=== PATIENT | female | born 1990 | race Caucasian/White ===

== ENCOUNTER → 2016-12-29 | Outpatient (CLI) | payer BC ==
[~2016-12-29] MED LIST: BCPILLS PO; DESO1TAB7 PO
[2016-12-29 14:49] LABS: ALT/SGPT 28 U/L (12-78); AST/SGOT 17 U/L (15-37); BLOOD UREA NITROGEN 10 mg/dl (7-18); CALCIUM 8.8 mg/dl (8.5-10.1); CARBON DIOXIDE 27 mmol/L (21-32); CHLORIDE 108 mmol/L (98-107); CREATININE 0.86 mg/dl (0.60-1.20); GLUCOSE 83 mg/dl (70-99); POTASSIUM 4.2 mmol/L (3.5-5.1); SODIUM 140 mmol/L (136-145)
[2016-12-29 14:59] LABS: ALB/GLOB RATIO 1.1 (0.9-2); ALKALINE PHOSPHATASE 49 U/L (45-117)
[2016-12-29 15:07] LABS: ESTIMATED AVERAGE GLUCOSE 97 mg/dl; HA1C FLAG Normal (Normal)
== END | disposition home or self-care (01) ==
LOC: C.LAB1850 12:39
PROVIDERS: ATTEND Family Medicine
DX: E78.5 Hyperlipidemia, unspecified (principal); R53.83 Other fatigue; E66.9 Obesity, unspecified; E55.9 Vitamin D deficiency, unspecified

== ENCOUNTER → 2017-07-12 | Outpatient (CLI) | payer BC | END | disposition home or self-care (01) | LOC: C.PAPS 11:30 | PROVIDERS: ATTEND Obstetrics & Gynecology | DX: Z01.419 Encounter for gynecological examination (general) (routine) without abnormal findings (principal) ==

== ENCOUNTER → 2017-09-19 | Outpatient (CLI) | payer BC | END | disposition home or self-care (01) | LOC: C.PATHSPEC 17:23 | PROVIDERS: ATTEND Obstetrics & Gynecology | DX: N87.0 Mild cervical dysplasia (principal) ==

== ENCOUNTER 2023-08-25 07:44 | Inpatient (IN) ==
[2023-08-25] MEDS ORDERED: OXYTOCIN 30 UNITS/NSS 30 UNITS/500 ML BAG IV PRN (08:01)
[2023-08-25] MEDS ORDERED: LIDOCAINE 1% LOCAL 20 ML VIAL INFIL PRN (08:01)
--- NOTE | 2023-08-25 08:25 | History & Physical Report ---
Date of Service August 25, 2023 Assessment & Plan (1) Supervision of normal first : Plan: Admit to L&D. EFM/toco, labs. IV fluids. Walker bulb placed, filled to 35cc sterile water - tolerated well. Pitocin. Patient agrees with plan. Admission and Anticipated Discharge Date Admission Date: August 25, 2023 History of Present Illness Chief Complaint: IOL Primary Care Provider: Nikos Kohler MD 33yo @ 40 07/10, here for IOL. Obesity (BMI 40 and higher @ beginning of ) *Growth US @ 32wks *Weekly NSTs @ 34wks *BMI 40 or greater offer detailed/level II anatomy at [facility] *BMI 40 or above offer delivery by EDC--> induction scheduled for event (call at 11 to arrive at noon) *BMI 50 or greater scheduled detailed/level II anatomy at [facility] Factor V Leiden Heterozygote *Heme Consult (03/11/23) -Do not recommend VTE prophylaxis during and only needed PP if has csection -Recommend FOB have testing for factor V due to family hx of FOB sister having it - FOB is factor V heterozygous Hypothyroidism *managed by PCP Pt with Hip Dysplasia - patient sees chiropracter for this - not doing HVLA - has full mobility, just soreness/stiffness Allergies Allergy/AdvReac Type Severity Reaction Status Date / Time bee venom protein (honey bee) Allergy Severe EXTREME Verified 08/24/23 13:30 SWELLING orange Allergy Intermediate HIVES/RASPY Verified 08/24/23 13:30 - FROM ORANGE JUICE No Known Drug Allergies Allergy Verified 08/24/23 13:30 Honeydew Harinder Allergy Intermediate HIVES Uncoded 08/24/23 13:30 Home Medications Medication Instructions Recorded Confirmed Type vits no.126-ferrous fum tab PO 01/06/23 08/24/23 History 28 mg iron-folic acid 800 mcg tablet (Classic ) levothyroxine 50 mcg tablet See Rx Instructions PO DAILY #90 01/10/23 08/24/23 Rx tabs mupirocin 2 % topical ointment 1 applic topical BID #15 grams 05/17/23 08/24/23 Rx RSV vac, preF A and preF B(PF) 120 0.5 ml IM ONCE #1 ea 07/14/23 08/24/23 Rx mcg/0.5 mL IM solution (Abrysvo) levothyroxine 75 mcg tablet 75 mcg PO DAILY #30 tabs 07/27/23 08/24/23 Rx Patient History Medical History (Updated 01/14/23 @ 16:25 by Zelda García MD, FACOG) Abnormal finding on thyroid function test Acute bronchitis Leukocytosis Surgical History History of colposcopy History of dental surgery Family History Father Diabetes Factor 5 Leiden mutation, heterozygous Nephrolithiasis Aunt Breast cancer Grandfather (Paternal) Diabetes Grandfather (Maternal) Coronary heart disease Diabetes Colon cancer Myocardial infarction Grandmother (Maternal) Hypertension Grandmother (Paternal) Hypertension Denies family history of Ovarian cancer Prostate cancer Social History Smoking Status: Never smoker Second Hand Exposure: No; Do You Dip or Chew Tobacco: No; Hx Alcohol Use: Yes Hx Substance Use: No Preferred Language: Citizen Of [place] Communication Ability: Effective Visual Impairment: No Limitations Hearing Ability: Normal Cd Mixer Required: No Beliefs That Will Affect Care: None marital status: marital status details: Abdoul España (34) [phone] Current Living Situation: Spouse Current Living Situation Comment: lives with and 1 dog current occupational status: employed current occupation: teacher Feels Safe at Home: Yes Childhood Exposure to Second-Hand Smoke: No Dental Care, Regularly: Yes Seatbelt Use: always Sunscreen Use: Yes Review of Systems All systems reviewed & are unremarkable except as noted in HPI & below Physical Exam Physical Exam: FHT Cat 1 [place] occasional SVE cl/50/-3 Constitutional: WD/WN, vitals as above Respiratory: normal respiratory effort, lungs clear to auscultation no respiratory distress Cardiovascular: Rate/Rhythm: regular rate and regular rhythm Gastrointestinal (Abdomen): Inspection/Auscultation: abdomen normal to inspection Percussion/Palpation: abdomen soft; abdomen nontender Gravid. No s/s chorio or abruption. Skin: no rashes, warm and dry Psychiatric: A+Ox3, euthymic affect Results & Data Vital Signs (Past 12 Hours) Vital Signs Pulse BP 08/25/23 07:59 93 H 148/78 H Code Status & VTE Plan VTE Prophylaxis Plan VTE Prophylaxis will be ordered: No Coding Level of Care Code None Diagnoses Supervision of normal first Z34.00
[2023-08-25] MEDS: LACTATED RINGER'S 1,000 ML IV PRN (08:30)
[2023-08-25 08:46] LABS: Hematocrit (blood only) 39.7 % (37.0-47.0); Hemoglobin 13.1 g/dl (12.0-16.0); Mean Corpuscular Hemoglobin 29.8 pg (25.0-34.0); Mean Corpuscular Volume 90.4 fL (80.0-100.0); Mean Platelet Volume 11.8 fL (9.4-12.4); Platelet Count 205 K/uL (130-400); RDW Coefficient of Variation 13.7 % (11.5-14.5); RDW Standard Deviation 45.1 fL (36.4-46.3); Red Blood Count 4.39 M/uL (4.20-5.40); White Blood Count 10.34 K/ul (4.8-10.8)
[2023-08-25 09:00] LABS: Albumin Globulin Ratio 1.1 (0.9-2); Albumin Level 3.3 gm/dl (3.4-5.0); BUN Creatinine Ratio 12.9 (10-20); Bilirubin,Total 0.4 mg/dl (0.2-1.0); Calcium 8.9 mg/dl (8.6-10.3); Creatinine Clr Calc Pharmacy 160.4 ml/min; Est GFR (African American) 136.4 ml/min; Est GFR (Non-African American) 117.6 ml/min; Globulin 2.9 gm/dl (2.5-4.0); Potassium 3.7 mmol/L (3.5-5.1); Total Protein 6.2 gm/dl (6.0-8.3)
[2023-08-25] MEDS: OXYTOCIN 30 UNITS/NSS 30 UNITS/500 ML BAG IV PRN (09:13)
[2023-08-25] MEDS ORDERED: SODIUM CHLORIDE 0.9% PF INJ 10 ML VIAL EPI PRN (14:51)
[2023-08-25] MEDS ORDERED: NALOXONE HCL 0.4 MG/1 ML VIAL/CARP IV PRN (14:51)
[2023-08-25] MEDS ORDERED: ePHEDrine sulfate 50 MG/ML AMP IV PRN (14:51)
[2023-08-25] MEDS ORDERED: ROPIVACAINE 0.5% PF 5 MG/ML 20 ML VIAL EPI PRN (14:51)
[2023-08-25] MEDS ORDERED: NALOXONE HCL 1 MG in SODIUM CHLORIDE 0.9% 1,000 ML IV PRN (14:51)
[2023-08-25] MEDS ORDERED: NALBUPHINE HCL 5 MG in SYRINGE 0 ML IV PRN (14:51)
[2023-08-25] MEDS ORDERED: diphenhydrAMINE 50 MG/ML VIAL IV PRN (14:51)
[2023-08-25] MEDS ORDERED: LIDOCAINE 2% MPF LOCAL 5 ML VIAL EPI PRN (14:51)
--- NOTE | 2023-08-25 14:55 | Anesthesiology Consultation ---
Date of Service August 25, 2023 Assessment & Plan Chart Review Chart Review: Patient NOT seen in Pre Admission Testing and Acceptable Risk for Labor Epidural Consults Requested none ASA ASA3 Proposed Anesthesia Anesthesia Type: Labor Epidural Risk / Benefits Reviewed With: PT / POA / Parent / Guardian, Accepts Plan and Informed Consent Obtained History Height/Weight Height: 5 ft 4 in Weight: 116.573 kg Allergies Allergy/AdvReac Type Severity Reaction Status Date / Time bee venom protein (honey bee) Allergy Severe EXTREME Verified 08/25/23 08:58 SWELLING orange Allergy Intermediate HIVES/RASPY Verified 08/25/23 08:58 - FROM ORANGE JUICE No Known Drug Allergies Allergy Unknown Verified 08/25/23 08:58 Honeydew Harinder Allergy Intermediate HIVES Uncoded 08/24/23 13:30 Medications Home Medications Medication Instructions Recorded Confirmed Last Taken vits no.126-ferrous fum tab PO DAILY 01/06/23 08/24/23 08/24/23 28 mg iron-folic acid 800 mcg tablet (Classic ) levothyroxine 50 mcg tablet See Rx Instructions PO DAILY #90 01/10/23 08/25/23 08/25/23 tabs 0600 RSV vac, preF A and preF B(PF) 120 0.5 ml IM ONCE #1 ea 07/14/23 08/24/23 Unknown mcg/0.5 mL IM solution (Abrysvo) levothyroxine 75 mcg tablet 75 mcg PO DAILY #30 tabs 07/27/23 08/25/23 08/24/23 06:00 Active Medications Generic Name Dose Route Start Last Admin Trade Name Freq PRN Reason Stop Dose Admin Oxytocin 30 units in 500 mls @ 9 mls/hr 08/25/23 08:02 08/25/23 12:15 Pitocin 30 Units/Nss IV 08/27/23 08:01 0.54 units/hr .Q24H PRN 9 mls/hr Labor Induction/Augmentation Titration Protocol 0.54 UNITS/HR Lactated Ringer's 1,000 mls @ 125 mls/hr 08/25/23 08:01 08/25/23 14:39 Lr IV 08/27/23 08:00 999 mls/hr .Q8H PRN Administration L&D Protocol Protocol NPO Date Last Intake of Fluids: 08/25/23 Time Last Intake of Fluids: 14:00 Date Last Intake of Solids: 08/25/23 Time Last Intake of Solids: 06:00 Past Medical History Medical History Hip dysplasia, congenital Abnormal finding on thyroid function test Acute bronchitis Leukocytosis Exercise / Class Metabolic Activity II 4-5 Yardwork/Stairs/Walk up hill Past Family History Family History Father Diabetes Factor 5 Leiden mutation, heterozygous Nephrolithiasis Aunt Breast cancer Grandfather (Paternal) Diabetes Grandfather (Maternal) Coronary heart disease Diabetes Colon cancer Myocardial infarction Grandmother (Maternal) Hypertension Grandmother (Paternal) Hypertension Denies family history of Ovarian cancer Prostate cancer Past Surgical History Surgical History History of colposcopy History of dental surgery Past Anesthesia History No Hx of Anesthesia Complications, No Family Hx of Anesthesia Complications and Pseudocholinesterase Deficiency History of PONV No Hx of PONV and No Hx of Motion Sickness Social History Smoking Status: Never smoker tobacco type: cigarettes Do You Dip or Chew Tobacco: No Hx Alcohol Use: No Hx Substance Use: No Review of Systems ROS Unobtainable: All systems reviewed & are unremarkable except as noted in HPI & below Physical Exam Vital Signs Last Vital Signs Temp 37.1 C 08/25/23 13:03 Pulse 65 08/25/23 13:04 Resp 19 08/25/23 13:03 BP 148/67 H 08/25/23 13:04 ENMT Mouth: no TMJ abnormality Thyromental Distance: > or= 3.5 Finger Breadths Mallampati Class: II Neck normal visual inspection and trachea midline; neck extension not limited Respiratory normal respiratory effort Auscultation: lungs clear to auscultation bilaterally Cardiovascular Rate/Rhythm: regular rate and regular rhythm Heart Sounds: no murmur Musculoskeletal Spine: normal cervical ROM Extremities: full ROM of extremities Neurologic moves all extremities Psychiatric Orientation: alert and oriented x 3 Testing Laboratory Results 08/25/23 08:19 08/25/23 08:19 Blood Type A Positive 08/25/23 08:19 Antibody Screen NEGATIVE 08/25/23 08:19
[2023-08-25] MEDS: fentaNYL citrate PF 100 MCG/2 ML VIAL ONE (15:13)
[2023-08-25] MEDS: fentANYL 2 MCG/ML BUPIVacaine 0.125%-NSS 100ML BAG ONE (15:14)
[2023-08-25] MEDS: LIDOCAINE 2%/EPINEPHRINE 1:200,000 20 ML PF ONE (15:14)
[2023-08-25] MEDS: BUPIVACAINE 0.25% PF 30 ML VIAL ONE (15:14)
[2023-08-25] MEDS: SODIUM CHLORIDE 0.9% PF INJ 10 ML VIAL ONE (15:16)
[2023-08-25] MEDS: fentaNYL citrate PF 100 MCG/2 ML VIAL EPI STA (18:04)
[2023-08-25] MEDS: BUPIVACAINE 0.25% PF 30 ML VIAL EPI STA (18:04)
[2023-08-25] MEDS: SODIUM CHLORIDE 0.9% PF INJ 10 ML VIAL EPI STA (18:05)
[2023-08-25] MEDS: LIDOCAINE 2%/EPINEPHRINE 1:200,000 20 ML PF EPI STA (18:05)
[2023-08-25] MEDS: ePHEDrine sulfate 50 MG/ML AMP ONE (18:26)
[2023-08-25] MEDS ORDERED: NURSING L&D Epidural Breakthrough Pain Update ONE (18:57)
[2023-08-25] MEDS: BUPIVACAINE 0.25% PF 30 ML VIAL EPI PRN (19:29)
--- NOTE | 2023-08-25 19:31 | Anesthesia Procedure Note ---
Date of Service August 25, 2023 Anesthesia Epidural Re-Dose Vital Signs Temp Pulse Resp BP Pulse Ox 36.7 C 91 H 20 144/67 H 97 08/25/23 17:31 08/25/23 19:25 08/25/23 18:01 08/25/23 19:16 08/25/23 19:25 Notes Pain Intensity: 2 Dilatation (cm): 6.0 Effacement (%): 90 Called by nursing to evaluate epidural as the patient is having increased pain. The epidural was re-dosed with the following medications (all medications via epidural route) after negative aspiration of the epidural catheter for CSF/HEME. 0.2 Ropivacaine ml via epidural After Epidural Re-Dose Mental Status: alert / awake / arousable and participated in evaluation Pain: improving with treatment Airway Patency, RR, SpO2: stable & adequate BP & HR: stable & adequate Additional Notes: Asked to evaluate patient for increased pain. Patient had T12 level to ice. Redosed epidural with 10 cc of 0.125% bupi. Pain improved. BP stable .
[2023-08-25] MEDS: fentaNYL citrate PF 100 MCG/2 ML VIAL EPI PRN (19:40)
[2023-08-25] MEDS: fentANYL 2 MCG/ML BUPIVacaine 0.125%-NSS 100ML BAG EPI PRN (21:02)
[2023-08-26] MEDS ORDERED: oxyCODONE/ACETAMINOPHEN 5mg/325mg TAB PO PRN (01:53)
[2023-08-26] MEDS ORDERED: HYDROCORTISONE ACETATE 25 MG SUPP PR PRN (01:53)
[2023-08-26] MEDS ORDERED: ACETAMINOPHEN 325 MG TAB PO PRN (01:53)
[2023-08-26] MEDS ORDERED: OXYTOCIN 30 UNITS/NSS 30 UNITS/500 ML BAG IV PRN (01:53)
[2023-08-26] MEDS: DIPHTHER/TETAN/PERTUS Vaccine (Tdap, Adol/Adult) 0.5mL IM ONE (02:21)
--- NOTE | 2023-08-26 02:33 | Delivery Summary ---
Vaginal Delivery Summary Date of Service August 26, 2023 Vaginal Delivery Summary and 1st Degree LAC Patient is a 33-year-old 1 P0 female EDC of 08/24/2023 who presents for induction of labor. She received a cervical balloon upon admission and Pitocin induction per protocol. After the balloon fell out, membranes were ruptured for clear fluid but very small amount. She received effective epidural analgesia. She progressed to full dilation with the urge to push. She pushed effectively over intact perineum for delivery of a viable female . After the head was delivered the rest the infant delivered easily and was placed on the mother's abdomen for further attention and drying. She was crying and moving all 4 limbs. The cord was clamped and cut at approximately 45 seconds. After cord blood was obtained, the placenta was expressed intact with a three-vessel cord. bleeding was controlled with dilute Pitocin and fundal massage. First-degree vaginal laceration was repaired with 3-0 chromic in usual fashion. Bilateral labial superficial abrasions were not bleeding and therefore not repaired. QBL was 200 cc. Her bladder was straight cathed for 75 cc after delivery. This was done using sterile technique. Mother and were doing well after delivery. [facility] [place] Vaginal Delivery Charge Delivery Type Details: and 1st Degree LAC
[2023-08-26] MEDS ORDERED: LEVOTHYROXINE SODIUM 75 MCG TABLET PO SCH (06:30)
[2023-08-26] MEDS: LEVOTHYROXINE SODIUM 75 MCG TABLET PO SCH (06:47)
[2023-08-26] MEDS: PRENATAL VITAMIN 1 TAB PO SCH (08:53)
[2023-08-26] MEDS: IBUPROFEN 600 MG TAB PO PRN (08:53)
[2023-08-26] MEDS: DOCUSATE SODIUM 100 MG CAP PO SCH (08:53)
[2023-08-26] MEDS: BENZOCAINE 20% SPRY 85 APPLN/85 GM CAN EXT PRN (08:56)
--- NOTE | 2023-08-26 09:37 | Anesthesia Procedure Note ---
Date of Service August 26, 2023 Anesthesia Post Epidural Note Vital Signs Vital Signs: Temp Pulse Resp BP Pulse Ox O2 Del Method 36.8 C 72 20 119/76 98 Room Air 08/26/23 04:05 08/26/23 04:05 08/26/23 04:05 08/26/23 04:05 08/26/23 04:05 08/26/23 04:05 Pain Intensity Bilateral Abdomen: Pain Intensity: 6 Notes Mental Status: alert / awake / arousable and participated in evaluation Patient Amnestic to Procedure: No Nausea / Vomiting: adequately controlled Pain: adequately controlled Airway Patency, RR, SpO2: stable & adequate BP & HR: stable & adequate Hydration State: stable & adequate Neuraxial Anesthesia: was administered and sensory block resolved Anesthetic Complications: no major complications apparent and Pt Satisfied with anesthetic care Epidural: Removed without complications, With tip intact and See Notes
[2023-08-27 06:33] LABS: Hematocrit (blood only) 32.8 % (37.0-47.0); Hemoglobin 10.8 g/dl (12.0-16.0); Mean Corpuscular Hemoglobin 30.5 pg (25.0-34.0); Mean Corpuscular Hgb Conc 32.9 g/dL (32.0-36.0); Mean Corpuscular Volume 92.7 fL (80.0-100.0); Mean Platelet Volume 11.5 fL (9.4-12.4); Platelet Count 181 K/uL (130-400); RDW Coefficient of Variation 14.1 % (11.5-14.5); RDW Standard Deviation 47.4 fL (36.4-46.3); Red Blood Count 3.54 M/uL (4.20-5.40)
--- NOTE | 2023-08-27 06:56 | Obstetrical Progress Note ---
Date of Service August 27, 2023 Assessment & Plan (1) care and examination: Plan: doing well today encourage ambulation pain control anticipate dc tomorrow Admission and Anticipated Discharge Date Admission Date: August 25, 2023 Supervising Physician Co-Signing Physician Notes Resident Physician Supervision Note: I interviewed and examined the patient. Discussed with Dr. Duffy and agree with findings and plan as documented in the note. Any exceptions or clarifications are listed here: Doing well. Routine care. Documented By: Mary Ann Robles MD, FACOG Subjective 33 yo post day 1 s/p Ambulation: ambulating normally Voiding: no voiding problems Passing Gas:: Yes Diet Tolerance:: regular diet Lochia:: Small Feeding Type:: breast feeding Current Pain Level: minimal Resting comfortably this AM in NAD. Denies PEREYRA, CP, SOB, N/V/D, LE pain/swelling. Review of Systems Review of Systems: reviewed, per HPI Physical Exam Physical Exam: General: patient resting comfortably, NAD, non-toxic in appearance, answers questions appropriately. Skin: warm, dry, intact HEENT: NC/AT, anicteric sclera, conjunctiva without injection, moist mucus membranes. Heart: +S1/S2, regular, no m/r/g Lungs: equal air entry bilaterally, no rales/rhonchi/wheezes Abd: +BS, soft, NT/ND, uterine fundus firm at umbilicus Ext: warm, no clubbing/cyanosis or edema, Doug's neg. Neuro: nonfocal, speech intact, no facial droop, moving all extremities on command. Results & Data Vital Signs (Past 12 Hours) Vital Signs Temp Pulse Resp BP Pulse Ox O2 Del Method 08/26/23 23:02 36.5 C 79 18 113/74 99 Room Air 08/26/23 19:17 36.5 C 83 18 126/82 99 Room Air Resident Activity Tracking Resident Involvement: Resident Care Provided Care Provided: Adult Hospital Medicine
[2023-08-27] MEDS ORDERED: bisacodyL 5 MG TABEC PO SCH (20:00)
[2023-08-28] MEDS ORDERED: bisacodyL 10 MG SUPP PR PRN
[2023-08-29] MEDS ORDERED: LEVOTHYROXINE SODIUM 50 MCG TABLET PO SCH (06:30)
== END 2023-08-27 17:15 | disposition home or self-care (01) | DRG 806 ==
LOC: 4S1 07:44 → 4E2 08-26 04:06